=== PATIENT | female | born 1965 | race Caucasian/White ===

== ENCOUNTER → 2021-06-16 | Outpatient (CLI) | payer BC, OTHER ==
[~2021-06-16] MED LIST: NAPROSYN500 MG PO
== END ==
LOC: SLEEP-COR 11:01
DX: G47.33 Obstructive sleep apnea (adult) (pediatric) (principal)
CPT/HCPCS: 95811

== ENCOUNTER → 2021-06-21 | Outpatient (CLI) | payer OTHER, BC | LOC: KOH-I 09:30 | DX: M51.26 Other intervertebral disc displacement, lumbar region (principal); M51.27 Other intervertebral disc displacement, lumbosacral region; M47.816 Spondylosis without myelopathy or radiculopathy, lumbar region | CPT/HCPCS: 72131 ==